=== PATIENT | male | born 1945 | race Caucasian/White ===

== ENCOUNTER → 2016-05-04 | Outpatient (CLI) | payer OTHER ==
[2016-05-04 13:12] LABS: BASO % 0.9 %; BASO ABS # 0.05 K/uL (0-0.2); COMPLETE YES; EOS % 2.8 %; HEMATOCRIT 43.3 % (42-52); IG% 0.2 %; LYMPH % 27.2 %; LYMPH ABS # 1.55 K/uL (1.2-3.4); MEAN CELL VOLUME 88.5 fL (80-100); MEAN CORPUSCULAR HEMOGLOBIN 30.7 pg (25-34); MEAN CORPUSCULAR HGB CONC 34.6 g/dl (32-36); MONO % 9.1 %; NEUT % 59.8 %; PLATELET COUNT 279 K/uL (130-400); RED BLOOD COUNT 4.89 M/uL (4.7-6.1); WHITE BLOOD COUNT 5.69 K/uL (4.8-10.8)
[2016-05-04 13:49] LABS: ALB/GLOB RATIO 1.2 (0.9-2); ALKALINE PHOSPHATASE 82 U/L (45-117); ALT/SGPT 20 U/L (12-78); AST/SGOT 14 U/L (15-37); BLOOD UREA NITROGEN 12 mg/dl (7-18); BUN/CREATININE RATIO 11.3 (10-20); CALCIUM 8.6 mg/dl (8.5-10.1); CARBON DIOXIDE 27 mmol/L (21-32); CHLORIDE 106 mmol/L (98-107); CHOLESTEROL 208 mg/dl (0-200); GLUCOSE 100 mg/dl (70-99); POTASSIUM 3.9 mmol/L (3.5-5.1); SODIUM 141 mmol/L (136-145); TRIGLYCERIDES 219 mg/dl (0-150); VERY LOW DENSITY LIPOPROT CALC 44 mg/dl
[2016-05-04 13:55] LABS: CHOLESTEROL/HDL RATIO 5.1; HDL CHOLESTEROL 41 mg/dl; LDL CHOLESTEROL CALCULATED 123 mg/dl
== END | disposition home or self-care (01) ==
LOC: C.LABMFLN 10:29
PROVIDERS: ATTEND Family Medicine
DX: Z11.59 Encounter for screening for other viral diseases (principal); I10 Essential (primary) hypertension; E78.5 Hyperlipidemia, unspecified

== ENCOUNTER → 2017-05-25 | Outpatient (CLI) | payer OTHER | END | disposition home or self-care (01) | LOC: C.LABMFLN 09:37 | PROVIDERS: ATTEND Family Medicine | DX: E78.5 Hyperlipidemia, unspecified (principal) ==

== ENCOUNTER 2025-02-02 16:03 | Observation (INO) ==
[2025-02-02] MEDS: OPTIRAY 320 125ml IV ONE (16:40)
[2025-02-02 16:45] LABS: Hematocrit (blood only) 46.9 % (42.0-52.0); Hemoglobin 15.6 g/dl (14.0-18.0); Immature Granulocytes # (auto) 0.04 K/uL (0.01-0.20); Immature Granulocytes % (auto) 0.3 %; Mean Corpuscular Hemoglobin 29.9 pg (25.0-34.0); Mean Corpuscular Volume 90.0 fL (80.0-100.0); Platelet Count 277 K/uL (130-400); RDW Standard Deviation 46.0 fL (36.4-46.3); Red Blood Count 5.21 M/uL (4.70-6.10); White Blood Count 12.88 K/ul (4.8-10.8)
[2025-02-02 17:03] LABS: Alanine Aminotransferase 21.0 U/L (7-52); Albumin Globulin Ratio 1.2 (0.9-2); Albumin Level 4.2 gm/dl (3.4-5.0); Alkaline Phosphatase 90.0 U/L (34-104); Anion Gap 7.0 (3-11); Bilirubin,Total 1.0 mg/dl (0.2-1.0); Blood Urea Nitrogen 15.0 mg/dl (6-23); Calcium 9.3 mg/dl (8.6-10.3); Carbon Dioxide 26.0 mmol/L (21-32); Chloride 104.0 mmol/L (98-107); Creatinine Clr Calc Pharmacy 60.3 ml/min; Globulin 3.6 gm/dl (2.5-4.0); Glucose 138.0 mg/dl (70-99(Fasting)); Lipase 10.0 U/L (11-82); Magnesium 2.4 mg/dl (1.7-2.4); Potassium 3.9 mmol/L (3.5-5.1); Sodium 137.0 mmol/L (136-145); Total Protein 7.8 gm/dl (6.0-8.3)
[2025-02-02] MEDS: SODIUM CHLORIDE 0.9% 1,000 ML IV SCH (17:10)
[2025-02-02 17:11] LABS: INR 1.0 (0.9-1.1); Partial Thromboplastin Time 24 Seconds (21-31); Prothrombin Time 10.7 Seconds (9.0-12.0)
--- NOTE | 2025-02-02 17:16 | XRay Report ---
Exam(s): XR CXR 1 VIEW EXAM: XR Chest, 1 View CLINICAL HISTORY: Syncope. TECHNIQUE: Frontal view of the chest. COMPARISON: No relevant prior studies available. FINDINGS: Lungs: Left lower lobe pneumonia. Pleural space: Unremarkable. No pneumothorax. Heart: Unremarkable. No cardiomegaly. Mediastinum: Unremarkable. Normal mediastinal contour. Bones/joints: There are degenerative changes of the spine. No acute fracture. IMPRESSION: Left lower lobe pneumonia. Electronically signed by: Juanita Salamanca MD 02/02/25 17:15 PM
--- NOTE | 2025-02-02 17:19 | CT Scan Report ---
Exam(s): CTA HEAD With Contrast IV Amt: 119 ml optiray 320 EXAM: CT Angiography Head With Intravenous Contrast CLINICAL HISTORY: Dizziness and syncope. TECHNIQUE: Axial computed tomographic angiography images of the head with intravenous contrast. 3D and MIPS images were created and reviewed. CTDI is 60.96 mGy and DLP is 636.87 mGy-cm. Automated exposure control was utilized for the study. A dose lowering technique was utilized adhering to the principles of ALARA. MIP reconstructed images were created and reviewed. CONTRAST: Patient received 119 ml optiray 320 of IV contrast COMPARISON: No relevant prior studies available. FINDINGS: Right internal carotid artery: No acute findings. Intracranial segment is patent with no significant stenosis. No aneurysm. Right anterior cerebral artery: Unremarkable. No occlusion or significant stenosis. No aneurysm. Right middle cerebral artery: Unremarkable. No occlusion or significant stenosis. No aneurysm. Right posterior cerebral artery: Unremarkable. No occlusion or significant stenosis. No aneurysm. Right vertebral artery: Unremarkable as visualized. Left internal carotid artery: No acute findings. Intracranial segment is patent with no significant stenosis. No aneurysm. Left anterior cerebral artery: Unremarkable. No occlusion or significant stenosis. No aneurysm. Left middle cerebral artery: Unremarkable. No occlusion or significant stenosis. No aneurysm. Left posterior cerebral artery: Unremarkable. No occlusion or significant stenosis. No aneurysm. Left vertebral artery: Unremarkable as visualized. Basilar artery: Unremarkable. No occlusion or significant stenosis. No aneurysm. IMPRESSION: No acute finding of the arteries of the head. Electronically signed by: Juanita Salamanca MD 02/02/25 17:17 PM
--- NOTE | 2025-02-02 17:19 | CT Scan Report ---
Exam(s): CTA NECK With Contrast IV Amt: 119 ml optiray 320 EXAM: CT Angiography Neck With Intravenous Contrast CLINICAL HISTORY: Syncope and dizziness. TECHNIQUE: Routine carotid CT angiography protocol was performed with intravenous contrast. NASCET criteria using the distal ICAs for comparison were used for evaluation of stenoses. MIPS images were created and reviewed. CTDI is 37.86 mGy and DLP is 514.76 mGy-cm. Automated exposure control was utilized for the study. A dose lowering technique was utilized adhering to the principles of ALARA. MIP reconstructed images were created and reviewed. CONTRAST: Patient received 119 ml optiray 320 of IV contrast COMPARISON: None. FINDINGS: VASCULATURE: Right common carotid artery: Unremarkable. No occlusion or significant stenosis. No dissection. Right internal carotid artery: There is atherosclerosis of the right carotid bulb without significant stenosis. No dissection. Right external carotid artery: Unremarkable. No occlusion. Right vertebral artery: Unremarkable. No occlusion or significant stenosis. No dissection. Left common carotid artery: Unremarkable. No occlusion or significant stenosis. No dissection. Left internal carotid artery: Unremarkable. Extracranial segment is patent with no occlusion or significant stenosis. No dissection. Left external carotid artery: Unremarkable. No occlusion. Left vertebral artery: Unremarkable. No occlusion or significant stenosis. No dissection. NECK: Bones/joints: There are degenerative changes of the spine. No acute fracture. Soft tissues: Unremarkable. Lung apices: Interseptal thickening could relate to atelectasis and/or pulmonary edema. CAROTID STENOSIS REFERENCE USING NASCET CRITERIA: % ICA stenosis = (1 - narrowest ICA diameter/diameter of distal cervical ICA) x 100. Mild - <50% stenosis. Moderate - 50-69% stenosis. Severe - 70-94% stenosis. Near occlusion - 95-99% stenosis. Occluded - 100% stenosis. IMPRESSION: 1. No acute finding of the arteries of the neck. 2. Interseptal thickening could relate to atelectasis and/or pulmonary edema. Electronically signed by: Juanita Salamanca MD 02/02/25 17:19 PM
--- NOTE | 2025-02-02 17:20 | CT Scan Report ---
Exam(s): CT HEAD Without Contrast EXAM: CT Head Without Intravenous Contrast CLINICAL HISTORY: AMS. TECHNIQUE: Axial computed tomography images of the head/brain without intravenous contrast. CTDI is 36.05 mGy and DLP is 624.41 mGy-cm. Automated exposure control was utilized for the study. A dose lowering technique was utilized adhering to the principles of ALARA. COMPARISON: MRI brain 09/04/2024 FINDINGS: Brain: No intracranial hemorrhage, mass-effect or midline shift. No abnormal extra axial fluid. No evidence of acute infarct. 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 Ventricles: Unremarkable. No ventriculomegaly. Bones/joints: Unremarkable. No acute fracture. Soft tissues: Unremarkable. Sinuses: Unremarkable as visualized. No acute sinusitis. Mastoid air cells: Unremarkable as visualized. No mastoid effusion. IMPRESSION: No acute intracranial finding. Electronically signed by: Juanita Salamanca MD 02/02/25 17:19 PM
--- NOTE | 2025-02-02 18:06 | Emergency Department Note ---
Impression & Plan Community acquired pneumonia, Syncope, Acute dehydration, Acute and chronic respiratory failure with hypoxia ED Provider Note NAME: WILIAM ALVAREZ AGE: 79 SEX: M : 1945 ARRIVES VIA: Ambulance INFORMANT: Patient, EMS ED PROVIDER(S): Ramon Smalls DO CHIEF COMPLAINT: HPI: This is a 79-year-old male with the PMHx of polyneuropathy, degenerative disc disease, anxiety, osteoarthritis, hypertension, hyperlipidemia, GERD and nocturnal hypoxemia presenting to [facility] for further evaluation of syncope. Patient is accompanied by his daughter who provide additional history. they were following up with neurology today when the patient had a syncopal episode. Patient reports worsening shortness of breath and cough over the last few days. Mostly nonproductive. He does have some production of sputum in the mornings. Patient states that he has had issues with syncope. I did visualize the patient syncopal episode on arrival to the emergency department. Patient had loss of consciousness for approximately 30 seconds. He was not confused following the event. Patient states that he may have overdone it outside over the past few days. Family suspects that he could be mildly dehydrated. They deny fever or chills. Denies chest pain or palpitations. They deny abdominal pain, nausea and vomiting. No urinary complaints. No recent changes in bowel movements. Patient denies recent changes in medications or OTC supplements. Patient offers no other complaints, today. ADDITIONAL HISTORY OBTAINED: Per HPI Chronic Medical/Social Conditions Affecting Care: Per HPI PAST MEDICAL HISTORY: See Below PAST SURGICAL HISTORY: See Below FAMILY HISTORY: See Below SOCIAL HISTORY: See Below HOME MEDICATIONS: See Below ALLERGIES: See Below VITALS: See Below PHYSICAL EXAMINATION: GENERAL: Sitting up in bed, alert, well appearing, well nourished, no distress, non-toxic EYE EXAM: normal conjunctiva. PERRL and EOM's grossly intact. OROPHARYNX: no exudate, no erythema, lips, buccal mucosa, and tongue normal and mucous membranes are moist NECK: supple, no nuchal rigidity, no adenopathy, non-tender LUNGS: Decreased BS on the LLL. Normal chest wall mechanics HEART: no murmurs, regular rate, regular rhythm ABDOMEN: abdomen soft, non-tender, no masses, no rebound or guarding. BACK: Back is symmetrical on inspection and there is no deformity, no midline tenderness, no CVA tenderness. SKIN: no rashes and no bruising UPPER EXTREMITIES: upper extremities are grossly normal. LOWER EXTREMITIES: No pitting edema. NEURO EXAM: Normal sensorium, GCS 15, normal speech, no gross weakness of arms, no gross weakness of legs. No drift. Finger to nose intact. Gross sensation intact. MEDICAL DECISION MAKING: Differential diagnoses includes but not limited to ACS, dysrhythmia, stroke, head injury, anemia, AAA, infectious etiology, vasovagal, situational, electrolyte derangements, dehydration, PE, orthostasis In summary, this is a 79 year old male who presented with syncope. Differential as above. Nursing notes and pertinent past medical records reviewed. Vital signs reviewed and the patient is mildly hypoxic from his baseline but otherwise no significant respiratory distress and he is afebrile and hemodynamically stable. Patient was placed on low-flow nasal cannula. He normally wears this at nighttime. Has had to increase oxygen over the last few days secondary to his symptoms. History and presentation revealed syncopal episodes at a been ongoing issue. He has never fully passed out. Sounds like he has normally had just presyncopal episodes. He did have true syncope at the neurology office today as well as arrival to the emergency department. Patient complaining of mild shortness of breath and increased cough. Does have an increased oxygen requirement raising concerns for possible pulmonary etiologies. Physical examination revealed patient is neurovascularly intact. There is no evidence of postictal period to suggest seizures. Patient is warm and well-perfused with hemodynamic stability. Do not think the patient has a AAA or aortic dissection. Do not think the patient's syncope today is cardiac in nature but still a possibility. There is suggestion of possible vasovagal episodes or orthostasis. Acute dehydration is also a consideration. We will plan for laboratory evaluation, chest x-ray and IV hydration. Diagnostics interpreted by me include EKG and cardiac monitoring as listed below: -Cardiac Monitoring: An order was placed for continuous cardiac monitoring. The monitor shows a rate of 80-90s with regular rhythm. -ECG: normal sinus rhythm at a ventricular rate of 93 bpm. Incomplete right bundle branch block present. Left anterior fascicular block present. No significant ST segment changes to suggest STEMI. Intervals otherwise within normal limits. Patient completed laboratory studies and imaging. Results independently interpreted by me are Minimal leukocytosis. No significant anemia. Electrolytes are normal without significant kidney dysfunction. Increased [place] gravity on urinalysis. Suspect mildly dehydrated based on clinical examination and labs. Normal LFTs and lipase. Patient does not have a UTI. Chest x-ray with is consistent with a left lower lobe pneumonia as independently interpreted by me. Patient was started on ceftriaxone and azithromycin in addition to his IV crystalloid resuscitation. CTH independently interpreted by me reveals no evidence of ICH. No significant hydrocephalus. No major skull fractures. CTH does not demonstrate findings to suggest an etiology of the patient's symptoms or presentation, today. Unclear etiology of the patient's symptoms today and we proceeded with CTA head and neck imaging which was negative for acute stroke or significant intracranial abnormalities. Ultimately, the decision was made to admit the patient for community-acquired pneumonia with increased oxygen requirement complicated by syncopal episodes. I discussed the case with the hospitalist service via telephone/TigerText and they are agreeable to admit the patient to their services. Based on the above, including the patient's age, coexisting illnesses, labs, imaging, and exam findings the decision to treat as an inpatient. I discussed the patient with the hospitalist team who recommended admission to their services. They received the medications, treatments, interventions indicated above and their condition remain guarded. I discussed my findings with the patient and their family and they understand and agree with the treatment plan. All patient / family questions were answered to their satisfaction. Consults/Care Managements Discussions: Per MDM ER treatment provided: See above Procedures:none Critical Care: None The chart was completed utilizing [employer] Speech voice recognition software. Grammatical errors, random word insertions, pronoun errors, and incomplete sentences are an occasional consequence of this system due to software limitations, ambient noise, and hardware issues. Any formal questions or concerns about the content, text, or information contained within the body of this dictation should be directly addressed to the physician for clarification. Past Med/Surg History Problem List (Updated 02/04/25 @ 11:41 by Ramon Smalls DO) Acute and chronic respiratory failure with hypoxia (Acute) Acute dehydration (Acute) Syncope (Acute) Community acquired pneumonia (Acute) Polyneuropathy Weakness of both upper extremities Cervical radiculopathy Urinary bladder incontinence Ataxia CAP (community acquired pneumonia) Syncope Nocturnal hypoxemia wears 2 liters at night Food allergy Post-nasal drip Allergy history unknown Injury of left shoulder Left ventricular hypertrophy Exertional angina Disequilibrium Diplopia Head trauma Right facial pain Left lumbar radiculopathy Hyperlipidemia (Chronic) Hearing deficit (Chronic) BL [place] GERD (gastroesophageal reflux disease) (Chronic) Kidney stones (Chronic) Chronic back pain (Chronic) Degenerative disc disease (Chronic) Osteoarthritis (Chronic) History of cataract surgery (Chronic) BILATERAL Anxiety (Chronic) Carpal tunnel syndrome (Chronic) Cervicalgia (Chronic) EKG, abnormal (Chronic) Peripheral neuropathy (Chronic) Rotator cuff tear, right (Chronic) Medical History (Updated 02/04/25 @ 11:41 by Ramon Smalls DO) Essential hypertension Surgical History H/O colonoscopy 11/18/20 repeat 5yrs History of herniorrhaphy bl inguinal History of hand surgery Left History of shoulder surgery Right History of back surgery lumbar Hx laparoscopic cholecystectomy Family History Sister Cancer BOTH SISTERS (NOT SURE OF KIND) Lung cancer Father Hypertension Mother Stroke Denies family history of Ovarian cancer Prostate cancer Myocardial infarction Breast cancer Colorectal cancer Social History (Updated 07/31/24 @ 13:59 by JILLIAN Morris) Smoking Status: Former smoker Tobacco Type: Cigarettes Age Started Using Tobacco: 16; Age Quit Using Tobacco: 19; packs per day: 0.5; Second Hand Exposure: No; Do You Dip or Chew Tobacco: No; Hx Alcohol Use: No Hx Substance Use: No Preferred Language: Samoan Communication Ability: Effective Visual Impairment: Partially Limited Hearing Ability: Use of Hearing Aid Chef Assistant Required: No Beliefs That Will Affect Care: None marital status: Current Living Situation: Spouse current occupational status: retired How many Children do You have: 2 Feels Safe at Home: Yes Childhood Exposure to Second-Hand Smoke: Yes (mother) Diet: regular caffeine: Yes (tea/ occasional coffee) during the past year weight has: remained stable Dental Care, Regularly: No Physical Activity Frequency: Does not Exercise Seatbelt Use: always Sunscreen Use: No Do you think of yourself as: straight/heterosexual Gender Identity: Male Assistive Devices: None Allergies Allergies Allergy/AdvReac Type Severity Reaction Status Date / Time cyclobenzaprine Allergy Anaphylaxis Verified 02/02/25 14:02 [From Flexeril] fexofenadine [From Jane] Allergy Verified 02/02/25 14:02 ibuprofen Allergy Verified 02/02/25 14:02 naproxen [From Aleve] Allergy Verified 02/02/25 14:02 simvastatin [From Vytorin] Allergy Verified 02/02/25 14:02 duloxetine [From Cymbalta] AdvReac Hallucinati Verified 02/02/25 14:02 ng ezetimibe [From Zetia] AdvReac Cramping Verified 02/02/25 14:02 of the Muscles NSAIDS (Non-Steroidal AdvReac Swelling Verified 02/02/25 14:02 Anti-Inflamma of the Eye pregabalin [From Lyrica] AdvReac Swelling Verified 02/02/25 14:02 of the Eye Jocxmrd-BKH-UqB Reductase AdvReac Cramping Verified 02/02/25 14:02 Inhibitor of the [Rfrxobt-Quh-Czl Reductase Muscles Inhibitor] Home Meds Home Medications Medication Instructions Recorded Confirmed acetaminophen 500 mg tablet 1,000 mg PO Q6H PRN Pain 01/11/18 02/04/25 (Tylenol Extra Strength) multivitamin 1 tab PO DAILY 03/13/23 02/04/25 mecobalamin (vitamin B12) 1,000 1,000 mcg PO DAILY 12/02/24 02/04/25 mcg chewable tablet Previous Rx's Medication Instructions Recorded azelastine 137 mcg (0.1 %) nasal 2 spray intranasal DAILY #30 mL 12/02/24 spray amoxicillin 875 mg-potassium 1 tab PO BID #6 tabs 02/03/25 clavulanate 125 mg tablet azithromycin 250 mg tablet 500 mg (2 x 250 mg) PO QAM #3 tabs 02/03/25 midodrine 2.5 mg tablet 2.5 mg PO TID #30 tabs 02/03/25 Results & Data (ED) Vital Signs Vital Signs - 24 hr 02/02/25 16:09 02/02/25 16:45 02/02/25 16:50 Temperature 36.8 C Temperature Source Oral Pulse Rate 93 H Pulse Rate [Apical] 87 Respiratory Rate 20 20 Respiratory Effort / Characteristics Non-Labored Spontaneous Respiratory Depth Normal Blood Pressure 124/79 Blood Pressure [Right Arm] 139/94 Blood Pressure Mean 94 Blood Pressure Mean [Right Arm] 109 Pulse Oximetry 97 96 96 Oxygen Delivery Method Nasal Cannula Nasal Cannula Room Air Oxygen Flow Rate 2 3 3 Sepsis Recent Fever Within 48 Hours No Sepsis New/Unexplained Change in Mental Status N/A Sepsis Action Taken by Nursing No Action Required Laboratory Data 02/03/25 07:00 02/03/25 07:00 Lab Results 02/02/25 02/02/25 Range/Units 16:30 17:04 WBC 12.88 H (4.8-10.8) K/ul RBC 5.21 (4.70-6.10) M/uL Hgb 15.6 (14.0-18.0) g/dl Hct 46.9 (42.0-52.0) % MCV 90.0 (80.0-100.0) fL MCH 29.9 (25.0-34.0) pg MCHC 33.3 (32.0-36.0) g/dL RDW Std Deviation 46.0 (36.4-46.3) fL RDW Coeff of Cathryn 14.0 (11.5-14.5) % Plt Count 277 (130-400) K/uL MPV 9.9 (9.4-12.4) fL Immature Gran % (Auto) 0.3 % Neut % (Auto) 88.7 % Lymph % (Auto) 4.0 % Metcalfe % (Auto) 4.8 % Eos % (Auto) 1.8 % Baso % (Auto) 0.4 % Neut # (Auto) 11.43 H (1.40-6.50) K/uL Lymph # (Auto) 0.51 L (1.20-3.40) K/uL Metcalfe # (Auto) 0.62 H (0.11-0.59) K/uL Eos # (Auto) 0.23 (0.00-0.50) K/uL Baso # (Auto) 0.05 (0.00-0.20) K/uL Immature Gran # (Auto) 0.04 (0.01-0.20) K/uL PT 10.7 (9.0-12.0) Seconds INR 1.0 (0.9-1.1) APTT 24 (21-31) Seconds PTT Ratio 0.9 Sodium 137 (136-145) mmol/L Potassium 3.9 (3.5-5.1) mmol/L Chloride 104 (98-107) mmol/L Carbon Dioxide 26 (21-32) mmol/L Anion Gap 7 (3-11) BUN 15 (6-23) mg/dl Creatinine 1.18 (0.6-1.4) mg/dl Est Cr Clr Drug Dosing 60.3 ml/min eGFR 62.77 BUN/Creatinine Ratio 12.7 (10-20) Glucose 138 H (70-99(Fasting)) mg/dl Lactate 1.6 (0.4-2.0) mmol/L Calcium 9.3 (8.6-10.3) mg/dl Magnesium 2.4 (1.7-2.4) mg/dl Total Bilirubin 1.0 (0.2-1.0) mg/dl AST 27 (13-39) U/L ALT 21 (7-52) U/L Alkaline Phosphatase 90 (34-104) U/L Troponin I High Sens 3.9 (0-20) pg/ml Total Protein 7.8 (6.0-8.3) gm/dl Albumin 4.2 (3.4-5.0) gm/dl Globulin 3.6 (2.5-4.0) gm/dl Albumin/Globulin Ratio 1.2 (0.9-2) Lipase 10 L (11-82) U/L Procalcitonin 0.09 (0-0.5) ng/ml Administered Medications Discontinued Medications Azelastine HCl (Azelastine Hcl 0.1% Nasal 200 Sprays/27,400 Mcg Btl) 2 sprays NA DAILY ANJELICA Stop: 03/05/25 08:59 Last Admin: 02/03/25 09:00 Dose: 2 sprays Documented By: TOMAS Azithromycin (Azithromycin 250 Mg Tab) 500 mg PO QAM ANJELICA Stop: 02/08/25 08:59 Last Admin: 02/03/25 09:01 Dose: 500 mg Documented By: ASA Cyanocobalamin (Cyanocobalamin (B-12) 500 Mcg Tablet) 1,000 mcg PO DAILY ANJELICA Stop: 03/05/25 08:59 Last Admin: 02/03/25 09:01 Dose: 1,000 mcg Documented By: ASA Enoxaparin Sodium (Enoxaparin Inj 40 Mg/0.4 Ml Syr) 40 mg SQ Q24H ANJELICA Stop: 03/04/25 20:59 Last Admin: 02/02/25 22:08 Dose: 40 mg Documented By: TAL Guaifenesin (Guaifenesin 600 Mg Tabcr) 1,200 mg PO Q12 ANJELICA Stop: 03/04/25 20:59 Last Admin: 02/03/25 09:00 Dose: 1,200 mg Documented By: Admin: 02/02/25 22:07 Dose: 1,200 mg Documented By: TAL Sodium Chloride (Nss) 1,000 mls @ 999 mls/hr IV .Q1H1M ANJELICA Stop: 02/02/25 17:30 Last Infusion: 02/02/25 18:20 Dose: Infused Documented By: Admin: 02/02/25 17:10 Dose: 999 mls/hr Documented By: HUMBERTO Ceftriaxone Sodium (Rocephin) 2,000 mg in 50 mls @ 100 mls/hr IV NOW STA Stop: 02/02/25 18:05 Last Infusion: 02/02/25 18:44 Dose: Infused Documented By: Admin: 02/02/25 18:16 Dose: 100 mls/hr Documented By: HUMBERTO Azithromycin (Zithromax) 500 mg in 255 mls @ 127.5 mls/hr IV NOW ONE Stop: 02/02/25 19:35 Last Infusion: 02/02/25 20:55 Dose: Infused Documented By: Admin: 02/02/25 18:39 Dose: 127.5 mls/hr Documented By: HUMBERTO Parenteral Electrolytes (Plasma-Lyte A Ph 7.4) 500 mls @ 999 mls/hr IV .Q31M ONE Stop: 02/02/25 18:06 Last Infusion: 02/02/25 18:45 Dose: Infused Documented By: Admin: 02/02/25 18:19 Dose: 999 mls/hr Documented By: HUMBERTO Ceftriaxone Sodium (Rocephin) 2,000 mg in 50 mls @ 100 mls/hr IV Q24H ANJELICA Stop: 02/08/25 08:59 Last Infusion: 02/03/25 09:45 Dose: Infused Documented By: Admin: 02/03/25 09:01 Dose: 100 mls/hr Documented By: TOMAS Ioversol (Optiray 320 125ml) 119 ml IV ONCE ONE Stop: 02/02/25 16:41 Last Admin: 02/02/25 16:40 Dose: 119 ml Documented By: PLW Multivitamins (Multivitamin Tab) 1 tab PO DAILY ANJELICA Stop: 03/05/25 08:59 Last Admin: 02/03/25 09:01 Dose: 1 tab Documented By: ASA Imaging Data Radiologist's Impression: Head CT 02/02/25 16:24 Exam(s): CT HEAD Without Contrast EXAM: CT Head Without Intravenous Contrast CLINICAL HISTORY: AMS. TECHNIQUE: Axial computed tomography images of the head/brain without intravenous contrast. CTDI is 36.05 mGy and DLP is 624.41 mGy-cm. Automated exposure control was utilized for the study. A dose lowering technique was utilized adhering to the principles of ALARA. COMPARISON: MRI brain 09/04/2024 FINDINGS: Brain: No intracranial hemorrhage, mass-effect or midline shift. No abnormal extra axial fluid. No evidence of acute infarct. 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 Ventricles: Unremarkable. No ventriculomegaly. Bones/joints: Unremarkable. No acute fracture. Soft tissues: Unremarkable. Sinuses: Unremarkable as visualized. No acute sinusitis. Mastoid air cells: Unremarkable as visualized. No mastoid effusion. IMPRESSION: No acute intracranial finding. Electronically signed by: Juanita Salamanca MD 02/02/25 17:19 PM Chest X-Ray 02/02/25 16:25 Exam(s): XR CXR 1 VIEW EXAM: XR Chest, 1 View CLINICAL HISTORY: Syncope. TECHNIQUE: Frontal view of the chest. COMPARISON: No relevant prior studies available. FINDINGS: Lungs: Left lower lobe pneumonia. Pleural space: Unremarkable. No pneumothorax. Heart: Unremarkable. No cardiomegaly. Mediastinum: Unremarkable. Normal mediastinal contour. Bones/joints: There are degenerative changes of the spine. No acute fracture. IMPRESSION: Left lower lobe pneumonia. Electronically signed by: Juanita Salamanca MD 02/02/25 17:15 PM Head CTA 02/02/25 16:26 Exam(s): CTA HEAD With Contrast IV Amt: 119 ml optiray 320 EXAM: CT Angiography Head With Intravenous Contrast CLINICAL HISTORY: Dizziness and syncope. TECHNIQUE: Axial computed tomographic angiography images of the head with intravenous contrast. 3D and MIPS images were created and reviewed. CTDI is 60.96 mGy and DLP is 636.87 mGy-cm. Automated exposure control was utilized for the study. A dose lowering technique was utilized adhering to the principles of ALARA. MIP reconstructed images were created and reviewed. CONTRAST: Patient received 119 ml optiray 320 of IV contrast COMPARISON: No relevant prior studies available. FINDINGS: Right internal carotid artery: No acute findings. Intracranial segment is patent with no significant stenosis. No aneurysm. Right anterior cerebral artery: Unremarkable. No occlusion or significant stenosis. No aneurysm. Right middle cerebral artery: Unremarkable. No occlusion or significant stenosis. No aneurysm. Right posterior cerebral artery: Unremarkable. No occlusion or significant stenosis. No aneurysm. Right vertebral artery: Unremarkable as visualized. Left internal carotid artery: No acute findings. Intracranial segment is patent with no significant stenosis. No aneurysm. Left anterior cerebral artery: Unremarkable. No occlusion or significant stenosis. No aneurysm. Left middle cerebral artery: Unremarkable. No occlusion or significant stenosis. No aneurysm. Left posterior cerebral artery: Unremarkable. No occlusion or significant stenosis. No aneurysm. Left vertebral artery: Unremarkable as visualized. Basilar artery: Unremarkable. No occlusion or significant stenosis. No aneurysm. IMPRESSION: No acute finding of the arteries of the head. Electronically signed by: Juanita Salamanca MD 02/02/25 17:17 PM Neck CTA 02/02/25 16:26 Exam(s): CTA NECK With Contrast IV Amt: 119 ml optiray 320 EXAM: CT Angiography Neck With Intravenous Contrast CLINICAL HISTORY: Syncope and dizziness. TECHNIQUE: Routine carotid CT angiography protocol was performed with intravenous contrast. NASCET criteria using the distal ICAs for comparison were used for evaluation of stenoses. MIPS images were created and reviewed. CTDI is 37.86 mGy and DLP is 514.76 mGy-cm. Automated exposure control was utilized for the study. A dose lowering technique was utilized adhering to the principles of ALARA. MIP reconstructed images were created and reviewed. CONTRAST: Patient received 119 ml optiray 320 of IV contrast COMPARISON: None. FINDINGS: VASCULATURE: Right common carotid artery: Unremarkable. No occlusion or significant stenosis. No dissection. Right internal carotid artery: There is atherosclerosis of the right carotid bulb without significant stenosis. No dissection. Right external carotid artery: Unremarkable. No occlusion. Right vertebral artery: Unremarkable. No occlusion or significant stenosis. No dissection. Left common carotid artery: Unremarkable. No occlusion or significant stenosis. No dissection. Left internal carotid artery: Unremarkable. Extracranial segment is patent with no occlusion or significant stenosis. No dissection. Left external carotid artery: Unremarkable. No occlusion. Left vertebral artery: Unremarkable. No occlusion or significant stenosis. No dissection. NECK: Bones/joints: There are degenerative changes of the spine. No acute fracture. Soft tissues: Unremarkable. Lung apices: Interseptal thickening could relate to atelectasis and/or pulmonary edema. CAROTID STENOSIS REFERENCE USING NASCET CRITERIA: % ICA stenosis = (1 - narrowest ICA diameter/diameter of distal cervical ICA) x 100. Mild - <50% stenosis. Moderate - 50-69% stenosis. Severe - 70-94% stenosis. Near occlusion - 95-99% stenosis. Occluded - 100% stenosis. IMPRESSION: 1. No acute finding of the arteries of the neck. 2. Interseptal thickening could relate to atelectasis and/or pulmonary edema. Electronically signed by: Juanita Salamanca MD 02/02/25 17:19 PM Discharge Plan Visit Data Chief Complaint: Syncope Stated Complaint: SYNCOPE, CHEST PRESSURE ED Provider: Ramon Smalls Discharge Problem: Community acquired pneumonia, Syncope, Acute dehydration, Acute and chronic respiratory failure with hypoxia Patient Disposition: Admitted As Inpatient Condition: Serious Discharge Instructions Interventions: ED Discharge Assessment Last Done: 02/02/25 20:11
[2025-02-02] MEDS: cefTRIAXone SODIUM 2,000 MG/50 ML BAG IV STA (18:16)
[2025-02-02] MEDS: PLASMA-LYTE A 500 ML IV ONE (18:19)
--- NOTE | 2025-02-02 18:31 | History & Physical Report ---
"Date of Service February 02, 2025 Assessment & Plan (1) Syncope: (2) CAP (community acquired pneumonia): Plan Roderick is a pleasant 79-year-old man with past medical history of hypertension, hyperlipidemia, lumbar radiculopathy, nocturnal hypoxemia, diplopia, memory loss, dizziness/lightheadedness. He presented from his outpatient neurology office via EMS after a syncopal episode at his neurology appointment. He had another syncopal episode while in the ED. Workup on admission significant for left lower lobe pneumonia. He is being admitted for treatment of his LLL CAP and further workup of his syncopal episodes. #Syncope 2 syncopal episodes on 02/02, 1 in neurology office outpatient and 1 in ED on presentation. These syncopal episodes may be secondary to hypoxemia? He has had numerous episodes of presyncope and 1 other episode of syncope over the last 2 years. More often in the hot weather when working outside. Question if could be from dysautonomia? - Does not appear to be cardiac etiology. Monitor on telemetry - Stroke workup started in ED has been unremarkable, including head CT, head CTA, neck CTA - Brain MRI in August 2024 at [facility] unremarkable - Echocardiogram in December 2024 with EF 60-65%, grade 1 diastolic dysfunction, normal LV size and function - Orthostatic VS ordered - Lipid panel, A1c ordered with a.m. labs - PT/OT consulted -Check Lyme titer, vitamin D level, a.m. cortisol level, TSH. Recent B12 was normal - Check two-step walk test prior to discharge - Add MOSES hose for compression #Community-acquired pneumonia - with increased shortness of breath, nonproductive cough x 2 days at home - Mild leukocytosis with WBC 12.88, left lower lobe pneumonia identified on CXR, increased O2 requirement from baseline - Procalcitonin and lactate normal - Start ceftriaxone and azithromycin - Incentive Spirometer, Mucinex, Sputum Culture if able to produce - Duonebs PRN - Supplemental O2 as needed to maintain sats >90% - Trend CBC with AM labs #Dizziness/lightheadedness | Diplopia | Blurred vision - ongoing issue - Follows with ophthalmology and neurology outpatient - Stress test in 01/07 was normal - Had cataract surgery in October and November of this year. Reports initial improvement with his vision, but unfortunately it has returned to how it was prior to these surgeries now #Hypertensionpreviously prescribed lisinopril but no longer taking this #Hyperlipidemiacontinue omega-3 fatty acids. Reportedly had side effects to statin medications in the past #Chronic back pain | lumbar radiculopathy history of multiple back surgeries. Continue home Percocet 5325 mg twice daily as needed. Wears back brace regularly #Nocturnal hypoxemiacontinue O2 at bedtime VTE PPx: Lovenox SQ Dispo: Observation on med/tele Reviewed prior records Updated daughter at bedside on admission History of Present Illness Chief Complaint: Syncope Primary Care Provider: Michelle Drummond DO Vaughn is a pleasant 79-year-old man with past medical history of hypertension, hyperlipidemia, lumbar radiculopathy, nocturnal hypoxemia, diplopia, memory loss, dizziness/lightheadedness. He presented from his outpatient neurology office via EMS after a syncopal episode at his neurology appointment. At the time of my exam, the patient was lying in bed in no acute distress with his daughter present. He states he he was at his neurologist due to ongoing polyneuropathy, diplopia, lightheadedness that has been ongoing for about 1 year. At this appointment, he had a syncopal episode where he was unresponsive for approximately 30 seconds and had head/chest/back pain, blurry vision, tingling sensation in his arms, weakness, and dizziness upon waking up. He was transported to the ED via EMS. While in the ED, he had another syncopal episode. ED physician evaluated him following this repeat syncopal episode. He was diaphoretic at that time but had no focal neurological deficits. He does report increased shortness of breath for the past few days. He reports a nonproductive cough worse in the morning that has been ongoing since his supplemental O2 at bedtime was started in August of this year. He typically wears 2 L of oxygen at bedtime at baseline, though he is working on obtaining an additional oxygen concentrator for the daytime as well. He denies any recent medication changes. He states a few months ago he was started on lisinopril, but discontinued this after 3 days due to side effects. He very sparingly uses Percocet as needed for severe back pain. Vitals on admission significant for an increased O2 requirement from baseline in order to maintain oxygen saturationcurrently 96% on 3 L O2; vitals otherwise stable. Labs on admission are significant for mild leukocytosis of 12.88 with neutrophil predominance and slightly elevated glucose at 138. Hgb and platelets WNL. Electrolytes WNL. Renal function WNL. Liver enzymes WNL. Lactate WNL at 1.6. Troponin WNL at 3.9. Procalcitonin WNL at 0.09. CXR on admission reveals left lower lobe pneumonia. Head CT with no acute intracranial finding. Head and neck CTAs with no acute findings. EKG with NSR, incomplete RBBB, left anterior fascicular block, no ischemic changes. We discussed code status, patient wishes to be a full code. Allergies Allergy/AdvReac Type Severity Reaction Status Date / Time cyclobenzaprine Allergy Anaphylaxis Verified 02/02/25 14:02 [From Flexeril] fexofenadine [From Jane] Allergy Verified 02/02/25 14:02 ibuprofen Allergy Verified 02/02/25 14:02 naproxen [From Aleve] Allergy Verified 02/02/25 14:02 simvastatin [From Vytorin] Allergy Verified 02/02/25 14:02 duloxetine [From Cymbalta] AdvReac Hallucinati Verified 02/02/25 14:02 ng ezetimibe [From Zetia] AdvReac Cramping Verified 02/02/25 14:02 of the Muscles NSAIDS (Non-Steroidal AdvReac Swelling Verified 02/02/25 14:02 Anti-Inflamma of the Eye pregabalin [From Lyrica] AdvReac Swelling Verified 02/02/25 14:02 of the Eye Fqvvpys-NKS-BqF Reductase AdvReac Cramping Verified 02/02/25 14:02 Inhibitor of the [Rmfolza-Pff-Jtj Reductase Muscles Inhibitor] Home Medications Medication Instructions Recorded Confirmed Type acetaminophen 500 mg tablet 1,000 mg PO Q6H PRN Pain 01/11/18 02/02/25 History (Tylenol Extra Strength) multivitamin 1 tab PO DAILY 03/13/23 02/02/25 History azelastine 137 mcg (0.1 %) nasal 2 spray intranasal DAILY #30 mL 12/02/24 02/02/25 Rx spray mecobalamin (vitamin B12) 1,000 1,000 mcg PO DAILY 12/02/24 02/02/25 History mcg chewable tablet Past Med/Surg History Problem List (Updated 02/02/25 @ 20:03 by Nat Hugo PA-C) Polyneuropathy Weakness of both upper extremities Cervical radiculopathy Urinary bladder incontinence Ataxia CAP (community acquired pneumonia) Syncope Nocturnal hypoxemia wears 2 liters at night Food allergy Post-nasal drip Allergy history unknown Injury of left shoulder Left ventricular hypertrophy Exertional angina Disequilibrium Diplopia Head trauma Right facial pain Left lumbar radiculopathy Hyperlipidemia (Chronic) Hearing deficit (Chronic) BL THOMPSON GERD (gastroesophageal reflux disease) (Chronic) Kidney stones (Chronic) Chronic back pain (Chronic) Degenerative disc disease (Chronic) Osteoarthritis (Chronic) History of cataract surgery (Chronic) BILATERAL Anxiety (Chronic) Carpal tunnel syndrome (Chronic) Cervicalgia (Chronic) EKG, abnormal (Chronic) Peripheral neuropathy (Chronic) Rotator cuff tear, right (Chronic) Medical History (Updated 02/02/25 @ 20:03 by Nat Hugo PA-C) Essential hypertension Surgical History H/O colonoscopy 11/18/20 repeat 5yrs History of herniorrhaphy bl inguinal History of hand surgery Left History of shoulder surgery Right History of back surgery lumbar Hx laparoscopic cholecystectomy Family History Sister Cancer BOTH SISTERS (NOT SURE OF KIND) Lung cancer Father Hypertension Mother Stroke Denies family history of Ovarian cancer Prostate cancer Myocardial infarction Breast cancer Colorectal cancer Social History (Updated 07/31/24 @ 13:59 by JILLIAN Morris) Smoking Status: Former smoker Tobacco Type: Cigarettes Age Started Using Tobacco: 16; Age Quit Using Tobacco: 19; packs per day: 0.5; Second Hand Exposure: No; Do You Dip or Chew Tobacco: No; Hx Alcohol Use: Yes Alcohol type: hard liquor Alcohol type Comment: whiskey/mohan Alcohol Intake Frequency: Monthly or Less Hx Substance Use: No Preferred Language: Austrian Communication Ability: Effective Visual Impairment: Partially Limited Hearing Ability: Use of Hearing Aid Product Communications Manager Required: No Beliefs That Will Affect Care: None marital status: Current Living Situation: Spouse current occupational status: retired How many Children do You have: 2 Feels Safe at Home: Yes Childhood Exposure to Second-Hand Smoke: Yes (mother) Diet: regular caffeine: Yes (tea/ occasional coffee) during the past year weight has: remained stable Dental Care, Regularly: No Physical Activity Frequency: Does not Exercise Seatbelt Use: always Sunscreen Use: No Do you think of yourself as: straight/heterosexual Gender Identity: Male Assistive Devices: Cane, Denture - Upper, Denture - Lower and Glasses Review of Systems Review of Systems: All systems reviewed & are unremarkable except as noted in HPI & below Eyes: + diplopia, + decreased night vision, + seeing flashes and + spots in vision Respiratory: + cough and + chest congestion Neurologic: + syncope Physical Exam Physical Exam: General: No acute distress, nondiaphoretic, well-developed, well-nourished. Skin: The skin was without rashes, erythema, edema, or bruising. Cardiac: Regular rate and rhythm without murmurs gallops or rubs. Pulm: Clear to auscultation bilaterally without wheezes, rales or rhonchi. No retractions or accessory muscle use. Abdominal: Positive bowel sounds x 4. Soft, nontender, without masses or organomegaly. No guarding or rebound tenderness. Neuro: A&O x3. No focal neurological deficits. Results & Data Results & Data Vital Signs (Past 12 Hours) Vital Signs Temp Pulse Pulse Resp BP BP Pulse Ox 02/02/25 16:50 96 02/02/25 16:45 87 20 139/94 96 02/02/25 16:09 98.2 F 93 H 20 124/79 97 O2 Del Method O2 Flow Rate 02/02/25 16:50 Room Air 3 02/02/25 16:45 Nasal Cannula 3 02/02/25 16:09 Nasal Cannula 2 Laboratory Results Reviewed CBC with differential, coagulation studies, CMP, chemistries Diagnostic Findings Reviewed CXR, head CT, head CTA, neck CTA, EKG Supervising Physician Co-Signing Physician Notes PA Supervision Note: I personally saw and examined the patient. I verified all hernandez points and agree with ADAIR Singh with the following exceptions and/or additions: S-patient here with 2 episodes of passing out-the first of the neurology office and the second in the ED waiting area. He reports a 2-year history of frequent lightheadedness and 1 other episode of syncope in August 2024 with subsequent hospitalization and has had negative neuro and cardiac workup thus far. He reports the symptoms are more frequent when he is out in warm weather. He reports he is on his feet doing something usually outside almost all day every day. He reports he is on his feet doing something usually outside almost all day every day. He is not taking any medications except for a B12 supplement and multivitamin. With some mild hypoxemia and left lower lobe pneumonia seen on chest x-ray, mild leukocytosis but no fevers or chills. History and ROS otherwise reviewed as above O- Vitals reviewed Gen: AAOx3, NAD HEENT: Anicteric sclerae, EOMI CV: RRR no mgr nl S1S2 Pulm: CTAB no wcr Abd: +BS soft NT ND no masses or hernias Ext: No edema, 2+ DP pulses Skin: No rashes, warm/dry Neuro: Full strength throughout CBC, BMP, troponin, ECG, CXR, CTA head and neck, CT head noncontrast reviewed A/[id number]-px[age]-old male with no significant past medical history except lumbar spinal stenosis and neuropathy, here with recurrent syncope and presyncope. He has already had a significant neurologic and cardiac workup which has been negative thus far. Suspect some sort of dysautonomia or POTS perhaps? Received IV fluids in the ED. Seen by neurology and likely needs an EMG/nerve conduction study for significant neuropathy. - Check Lyme panel, a.m. cortisol, vitamin D, TSH in the a.m. - Add MOSES hose - Check orthostatic vital signs - Consider adding midodrine or Florinef PG Care Time/CCT Total # of Minutes Spent Total Time Spent with Patient: Total time spent is greater than 50% in coordination of care (as documented) at patient's floor/unit and/or counseling patient: Coding Level of Care Code 09657 INT INP/OBS CARE 3/75MIN Diagnoses Syncope R55 CAP (community acquired pneumonia) J18.9"
[2025-02-02] MEDS: AZITHROMYCIN 500 MG/255 ML BAG IV ONE (18:39)
[2025-02-02 19:57] LABS: Appearance Urine Clear (Clear); Bacteria Urine Automated None Seen (None Seen); Cast Urine Automated 0-2 /lpf (0-2); Epithelial Cell Urine Auto 0-2 /hpf (0-2); Glucose Urine UA Negative (Negative); RBC Urine Automated 0-2 /hpf (0-2); WBC Urine Automated 0-5 /hpf (0-5)
[2025-02-02] MEDS ORDERED: ALBUT/IPRATROP 3MG/0.5MG NEB 3 ML VIAL NEB PRN (20:39)
[2025-02-02] MEDS ORDERED: ACETAMINOPHEN 325 MG TAB PO PRN (20:39)
[2025-02-02] MEDS ORDERED: ONDANSETRON INJ 2 MG/ML 2 ML VIAL IV PRN (20:39)
[2025-02-02] MEDS ORDERED: ALUMINUM/MAGNESIUM SUSP 30 ML UDC PO PRN (20:39)
[2025-02-02] MEDS ORDERED: POLYETHYLENE (MIRALAX) 17 GM PACK PO PRN (20:39)
[2025-02-02] MEDS: guaiFENesin 600 MG TABCR PO SCH (22:07)
[2025-02-02] MEDS: ENOXAPARIN INJ 40 MG/0.4 ML SYR SQ SCH (22:08)
[2025-02-03 07:16] LABS: Hematocrit (blood only) 38.0 % (42.0-52.0); Hemoglobin 12.9 g/dl (14.0-18.0); Mean Corpuscular Hemoglobin 30.7 pg (25.0-34.0); Mean Corpuscular Volume 90.5 fL (80.0-100.0); Platelet Count 204 K/uL (130-400); RDW Standard Deviation 46.9 fL (36.4-46.3); Red Blood Count 4.20 M/uL (4.70-6.10); White Blood Count 7.03 K/ul (4.8-10.8)
[2025-02-03 07:32] LABS: Anion Gap 6.0 (3-11); Blood Urea Nitrogen 12.0 mg/dl (6-23); Calcium 8.0 mg/dl (8.6-10.3); Carbon Dioxide 26.0 mmol/L (21-32); Chloride 106.0 mmol/L (98-107); Cholesterol 129.0 mg/dl (0-200); Creatinine Clr Calc Pharmacy 61.4 ml/min; Glucose 105.0 mg/dl (70-99(Fasting)); HDL Cholesterol 30.0 mg/dl; Potassium 3.4 mmol/L (3.5-5.1); Sodium 138.0 mmol/L (136-145); Triglycerides 111.0 mg/dl (0-150)
[2025-02-03 07:41] LABS: Hemoglobin A1C 5.5 % (4.5-5.6)
[2025-02-03 07:47] LABS: Thyroid Stimulating Hormone 0.977 uIu/ml (0.300-4.500)
[2025-02-03] MEDS: AZELASTINE HCL 0.1% NASAL 200 SPRAYS/27,400 MCG BTL SCH (09:00)
[2025-02-03] MEDS: MULTIVITAMIN TAB PO SCH (09:01)
[2025-02-03] MEDS: AZITHROMYCIN 250 MG TAB PO SCH (09:01)
[2025-02-03] MEDS: cefTRIAXone SODIUM 2,000 MG/50 ML BAG IV SCH (09:01)
[2025-02-03] MEDS: CYANOCOBALAMIN (B-12) 500 MCG TABLET PO SCH (09:01)
[2025-02-03 09:49] LABS: Cdiff Toxin B Gene (2yr or >) Negative Cdiff Gene (Neg)
--- NOTE | 2025-02-03 15:16 | Discharge Summary ---
"Discharge Summary Date of Service February 03, 2025 Principal Dx & Hospital Course #1 = Principal Diagnosis (1) Syncope: (2) CAP (community acquired pneumonia): Sabina Vaughn is a pleasant 79-year-old man with past medical history of hypertension, hyperlipidemia, lumbar radiculopathy, nocturnal hypoxemia, diplopia, memory loss, dizziness/lightheadedness. He presented from his outpatient neurology office via EMS after a syncopal episode at his neurology appointment. He had another syncopal episode while in the ED. Workup on admission significant for left lower lobe pneumonia. He was admitted for treatment of his LLL CAP and further workup of his syncopal episodes. #Syncope 2 syncopal episodes on 02/02, 1 in neurology office outpatient and 1 in ED on presentation. He has had numerous episodes of presyncope and 1 other episode of syncope over the last 2 years. More often in the hot weather when working outside. Question if could be from dysautonomia? - Does not appear to be cardiac etiology. Monitored on telemetry, no events - Stroke workup started in ED unremarkable, including head CT, head CTA, neck CTA - Brain MRI in August 2024 at [facility] unremarkable - Echocardiogram in December 2024 with EF 60-65%, grade 1 diastolic dysfunction, normal LV size and function - Lipid panel WNL, TSH WNL, AM cortisol WNL, vitamin D WNL, Lyme screen negative, A1c 5.5%. Recent B12 was normal - 2 step completed prior to discharge with no additional O2 needs - laser beam machine operator will coordinate 30 day heart monitor #Orthostatic hypotension - Orthostatic VS positive but patient reportedly asymptomatic - Start midodrine 2.5 mg TID - Recommend referral for tilt table test - for which he would need to hold the midodrine - Discussed compression stockings with him to wear. Could consider abdominal binder if refractory to medication/supportive measures #Community-acquired pneumonia - with increased shortness of breath, nonproductive cough x 2 days at home - Mild leukocytosis on admission with WBC 12.88 (now resolved), left lower lobe pneumonia identified on CXR, increased O2 requirement from baseline - Procalcitonin and lactate normal - Treated with ceftriaxone and azithromycin while admitted. Discharged on Augmentin twice daily and azithromycin once daily to complete 5-day course - Stable on room air -Recommend repeat chest x-ray in 4 to 6 weeks to ensure resolution of pneumonia #Dizziness/lightheadedness | Diplopia | Blurred vision - ongoing issue - Follows with ophthalmology and neurology outpatient - Stress test in 01/07 was normal - Had cataract surgery in October and November of this year. Reports initial improvement with his vision, but unfortunately it has returned to how it was prior to these surgeries now #Hypertensionpreviously prescribed lisinopril but no longer taking this #Hyperlipidemiacontinue omega-3 fatty acids. Reportedly had side effects to statin medications in the past #Chronic back pain | Lumbar radiculopathy history of multiple back surgeries. Continue home Percocet 5325 mg twice daily as needed. Wears back brace regularly #Nocturnal hypoxemiacontinue O2 at bedtime VTE PPx: Lovenox SQ Dispo: Discharged home 02/03 Notes For Next Care Provider I started Mr. Scales on midodrine 2.5 mg 3 times daily and recommend close follow-up with PCP. Also recommend a referral for a tilt table test (he for which he would need to hold the midodrine). Our branch maker will coordinate a 30-day heart monitor for him. I wonder if his presyncope symptom onset of been ongoing for 1-2 years related to dysautonomia? Could be further worked up in the outpatient setting. Medication Changes From Visit Started midodrine 2.5 mg 3 times daily Augmentin twice daily and azithromycin once daily x 3 additional days Admission HPI Per Admitting Provider Roderick is a pleasant 79-year-old man with past medical history of hypertension, hyperlipidemia, lumbar radiculopathy, nocturnal hypoxemia, diplopia, memory loss, dizziness/lightheadedness. He presented from his outpatient neurology office via EMS after a syncopal episode at his neurology appointment. At the time of my exam, the patient was lying in bed in no acute distress with his daughter present. He states he he was at his neurologist due to ongoing polyneuropathy, diplopia, lightheadedness that has been ongoing for about 1 year. At this appointment, he had a syncopal episode where he was unresponsive for approximately 30 seconds and had head/chest/back pain, blurry vision, tingling sensation in his arms, weakness, and dizziness upon waking up. He was transported to the ED via EMS. While in the ED, he had another syncopal episode. ED physician evaluated him following this repeat syncopal episode. He was diaphoretic at that time but had no focal neurological deficits. He does report increased shortness of breath for the past few days. He reports a nonproductive cough worse in the morning that has been ongoing since his supplemental O2 at bedtime was started in August of this year. He typically wears 2 L of oxygen at bedtime at baseline, though he is working on obtaining an additional oxygen concentrator for the daytime as well. He denies any recent medication changes. He states a few months ago he was started on lisinopril, but discontinued this after 3 days due to side effects. He very sparingly uses Percocet as needed for severe back pain. Vitals on admission significant for an increased O2 requirement from baseline in order to maintain oxygen saturationcurrently 96% on 3 L O2; vitals otherwise stable. Labs on admission are significant for mild leukocytosis of 12.88 with neutrophil predominance and slightly elevated glucose at 138. Hgb and platelets WNL. Electrolytes WNL. Renal function WNL. Liver enzymes WNL. Lactate WNL at 1.6. Troponin WNL at 3.9. Procalcitonin WNL at 0.09. CXR on admission reveals left lower lobe pneumonia. Head CT with no acute intracranial finding. Head and neck CTAs with no acute findings. EKG with NSR, incomplete RBBB, left anterior fascicular block, no ischemic changes. We discussed code status, patient wishes to be a full code. Discharge Exam General: No acute distress, nondiaphoretic, well-developed, well-nourished. Skin: Warm, dry. No rashes or peripheral edema noted. Cardiac: Regular rate and rhythm without murmurs gallops or rubs. Pulm: Clear to auscultation bilaterally without wheezes, rales or rhonchi. Normal respiratory effort. 95% on room air. Abdominal: Soft, nontender, nondistended. Bowel sounds present. Neuro: A&O x3. No focal neurological deficits. Discharge Plan Discharge Items Patient Disposition: Home - Home Health Services Reason For Visit: SYNCOPE, PNEUMONIA Discharge Diagnosis: Syncope, community-acquired pneumonia Activity: Resume your previous activity Non-emergency contact: Primary Care Provider and Neurologist Call non-emergency contact if: you have any medication questions and your symptoms worsen Follow-up/Referrals: Short,Michelle Shemar-Cheryl, DO [Primary Care Provider] - 02/09/25 10:00 am (Follow-up within 1 week) Diet: Regular Addtl Attending Provider Instructions: Mook, You were admitted to the hospital after 2 syncopal episodes yesterday, 02/02. You were also found to have community-acquired pneumonia and were started on antibiotics to treat this. Additionally, your orthostatic vital signs indicated orthostatic hypotension this is a drop in your blood pressure when going from lying to sitting to standing. This orthostatic hypotension may have played a role in near syncopal episodes. The syncopal episodes may also have been due to dysautonomia, which can be further worked up outpatient. The respiratory team evaluated you to see if you need daytime oxygen at rest or with activity, and fortunately you do not require any additional oxygen during the daytime. Upon discharge from the hospital: * Start midodrine 2.5 mg three times daily. This is to prevent orthostatic hypotension. The most common side effects of midodrine are lying and sitting hypertension, itchiness, urinary retention, and increased urinary frequency/urgency. * Take Augmentin (oral antibiotic) twice daily and azithromycin (oral antibiotic) once daily x 3 additional days at home. Start this tomorrow, 02/04 as you already received your dose of antibiotics for today. Side effects of oral antibiotics include GI upset. I recommend taking your antibiotics with food to prevent nausea/vomiting/diarrhea. You could also take a probiotic (available [id number]) or eat a cup of yogurt daily while on antibiotics. * You can take Mucinex as needed for congestion. This is available [id number]. * I have made a referral for you to get a 30 day heart monitor to see if you have any underlying arrhythmias that might be causing your syncope/ongoing symptoms. * Continue your other home medications as prescribed. * Follow-up with your PCP within 1 week. Please return to the hospital if you experience any of the following: Further episodes of syncope, chest pain, difficulty breathing, confusion, strokelike symptoms, or any other acute concerns. It was a pleasure taking care of you while you were in the hospital! Pending Studies at Discharge: No Stand-Alone Forms: My RMI, Smoking Cessation Medications and DC Order Prescriptions: New azithromycin 250 mg Tablet 500 mg PO QAM Qty: 3 0RF midodrine 2.5 mg tablet 2.5 mg PO TID Qty: 30 0RF Rx Instructions: do not give last dose of day after 6PM or within 4 hrs of bedtime amoxicillin-pot clavulanate 875-125 mg tablet 1 tab PO BID Qty: 6 0RF Continued multivitamin Tablet 1 tab PO DAILY mecobalamin (vitamin B12) 1,000 mcg tablet,chewable 1,000 mcg PO DAILY azelastine 137 mcg (0.1 %) spray,non-aerosol 2 spray intranasal DAILY Qty: 30 11RF acetaminophen [Tylenol Extra Strength] 500 mg Tablet 1,000 mg PO Q6H PRN (Reason: Pain) Admission Data Admit Date/Time: 02/02/25 19:41 Attending Provider: Gabi Okeefe Admit Provider: Gabi Okeefe Primary Care Provider: Michelle Drummond Other Providers: Gabi Okeefe Other Interventions: Discharge Summary Assessment (RN) Last Done: 02/03/25 15:50 Hospital Stay Data Consultations 02/02/25 18:06 ED Decision to Admit Stat Diagnostic Imagining Performed Head CT 02/02/25 16:24 Exam(s): CT HEAD Without Contrast EXAM: CT Head Without Intravenous Contrast CLINICAL HISTORY: AMS. TECHNIQUE: Axial computed tomography images of the head/brain without intravenous contrast. CTDI is 36.05 mGy and DLP is 624.41 mGy-cm. Automated exposure control was utilized for the study. A dose lowering technique was utilized adhering to the principles of ALARA. COMPARISON: MRI brain 09/04/2024 FINDINGS: Brain: No intracranial hemorrhage, mass-effect or midline shift. No abnormal extra axial fluid. No evidence of acute infarct. 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 Ventricles: Unremarkable. No ventriculomegaly. Bones/joints: Unremarkable. No acute fracture. Soft tissues: Unremarkable. Sinuses: Unremarkable as visualized. No acute sinusitis. Mastoid air cells: Unremarkable as visualized. No mastoid effusion. IMPRESSION: No acute intracranial finding. Electronically signed by: Juanita Salamanca MD 02/02/25 17:19 PM Chest X-Ray 02/02/25 16:25 Exam(s): XR CXR 1 VIEW EXAM: XR Chest, 1 View CLINICAL HISTORY: Syncope. TECHNIQUE: Frontal view of the chest. COMPARISON: No relevant prior studies available. FINDINGS: Lungs: Left lower lobe pneumonia. Pleural space: Unremarkable. No pneumothorax. Heart: Unremarkable. No cardiomegaly. Mediastinum: Unremarkable. Normal mediastinal contour. Bones/joints: There are degenerative changes of the spine. No acute fracture. IMPRESSION: Left lower lobe pneumonia. Electronically signed by: Juanita Salamanca MD 02/02/25 17:15 PM Head CTA 02/02/25 16:26 Exam(s): CTA HEAD With Contrast IV Amt: 119 ml optiray 320 EXAM: CT Angiography Head With Intravenous Contrast CLINICAL HISTORY: Dizziness and syncope. TECHNIQUE: Axial computed tomographic angiography images of the head with intravenous contrast. 3D and MIPS images were created and reviewed. CTDI is 60.96 mGy and DLP is 636.87 mGy-cm. Automated exposure control was utilized for the study. A dose lowering technique was utilized adhering to the principles of ALARA. MIP reconstructed images were created and reviewed. CONTRAST: Patient received 119 ml optiray 320 of IV contrast COMPARISON: No relevant prior studies available. FINDINGS: Right internal carotid artery: No acute findings. Intracranial segment is patent with no significant stenosis. No aneurysm. Right anterior cerebral artery: Unremarkable. No occlusion or significant stenosis. No aneurysm. Right middle cerebral artery: Unremarkable. No occlusion or significant stenosis. No aneurysm. Right posterior cerebral artery: Unremarkable. No occlusion or significant stenosis. No aneurysm. Right vertebral artery: Unremarkable as visualized. Left internal carotid artery: No acute findings. Intracranial segment is patent with no significant stenosis. No aneurysm. Left anterior cerebral artery: Unremarkable. No occlusion or significant stenosis. No aneurysm. Left middle cerebral artery: Unremarkable. No occlusion or significant stenosis. No aneurysm. Left posterior cerebral artery: Unremarkable. No occlusion or significant stenosis. No aneurysm. Left vertebral artery: Unremarkable as visualized. Basilar artery: Unremarkable. No occlusion or significant stenosis. No aneurysm. IMPRESSION: No acute finding of the arteries of the head. Electronically signed by: Juanita Salamanca MD 02/02/25 17:17 PM Neck CTA 02/02/25 16:26 Exam(s): CTA NECK With Contrast IV Amt: 119 ml optiray 320 EXAM: CT Angiography Neck With Intravenous Contrast CLINICAL HISTORY: Syncope and dizziness. TECHNIQUE: Routine carotid CT angiography protocol was performed with intravenous contrast. NASCET criteria using the distal ICAs for comparison were used for evaluation of stenoses. MIPS images were created and reviewed. CTDI is 37.86 mGy and DLP is 514.76 mGy-cm. Automated exposure control was utilized for the study. A dose lowering technique was utilized adhering to the principles of ALARA. MIP reconstructed images were created and reviewed. CONTRAST: Patient received 119 ml optiray 320 of IV contrast COMPARISON: None. FINDINGS: VASCULATURE: Right common carotid artery: Unremarkable. No occlusion or significant stenosis. No dissection. Right internal carotid artery: There is atherosclerosis of the right carotid bulb without significant stenosis. No dissection. Right external carotid artery: Unremarkable. No occlusion. Right vertebral artery: Unremarkable. No occlusion or significant stenosis. No dissection. Left common carotid artery: Unremarkable. No occlusion or significant stenosis. No dissection. Left internal carotid artery: Unremarkable. Extracranial segment is patent with no occlusion or significant stenosis. No dissection. Left external carotid artery: Unremarkable. No occlusion. Left vertebral artery: Unremarkable. No occlusion or significant stenosis. No dissection. NECK: Bones/joints: There are degenerative changes of the spine. No acute fracture. Soft tissues: Unremarkable. Lung apices: Interseptal thickening could relate to atelectasis and/or pulmonary edema. CAROTID STENOSIS REFERENCE USING NASCET CRITERIA: % ICA stenosis = (1 - narrowest ICA diameter/diameter of distal cervical ICA) x 100. Mild - <50% stenosis. Moderate - 50-69% stenosis. Severe - 70-94% stenosis. Near occlusion - 95-99% stenosis. Occluded - 100% stenosis. IMPRESSION: 1. No acute finding of the arteries of the neck. 2. Interseptal thickening could relate to atelectasis and/or pulmonary edema. Electronically signed by: Juanita Salamanca MD 02/02/25 17:19 PM Pending Results Patient Have Any Pending Studies at Discharge: No Discharge Instructions Given to Patient (Per Discharging Provider) Mook, You were admitted to the hospital after 2 syncopal episodes yesterday, 02/02. You were also found to have community-acquired pneumonia and were started on antibiotics to treat this. Additionally, your orthostatic vital signs indicated orthostatic hypotension this is a drop in your blood pressure when going from lying to sitting to standing. This orthostatic hypotension may have played a role in near syncopal episodes. The syncopal episodes may also have been due to dysautonomia, which can be further worked up outpatient. The respiratory team evaluated you to see if you need daytime oxygen at rest or with activity, and fortunately you do not require any additional oxygen during the daytime. Upon discharge from the hospital: * Start midodrine 2.5 mg three times daily. This is to prevent orthostatic hypotension. The most common side effects of midodrine are lying and sitting hypertension, itchiness, urinary retention, and increased urinary frequency/urgency. * Take Augmentin (oral antibiotic) twice daily and azithromycin (oral antibiotic) once daily x 3 additional days at home. Start this tomorrow, 02/04 as you already received your dose of antibiotics for today. Side effects of oral antibiotics include GI upset. I recommend taking your antibiotics with food to prevent nausea/vomiting/diarrhea. You could also take a probiotic (available [id number]) or eat a cup of yogurt daily while on antibiotics. * You can take Mucinex as needed for congestion. This is available [id number]. * I have made a referral for you to get a 30 day heart monitor to see if you have any underlying arrhythmias that might be causing your syncope/ongoing symptoms. * Continue your other home medications as prescribed. * Follow-up with your PCP within 1 week. Please return to the hospital if you experience any of the following: Further episodes of syncope, chest pain, difficulty breathing, confusion, strokelike symptoms, or any other acute concerns. It was a pleasure taking care of you while you were in the hospital! Supervising Physician Co-Signing Physician Notes ADAIR Supervision Note: I did not personally see or examine the patient today, but I verified all hernandez points of ADAIR Singh's assessment and plan with the following exceptions/additions: None Total Time Total Time Spent Total Time Spent (In Minutes): Greater than 30 minutes spent completing this discharge process including direct patient care, medication reconciliation, documentation, review of labs and images, and coordination of care. Coding Level of Care Code 26792 INP/OBS DISCH >30 MIN Diagnoses Syncope R55 CAP (community acquired pneumonia) J18.9"
[2025-02-03 15:27] VITALS: BP 128/75; RESP 18; TEMP 98.4; O2SAT 91
[2025-02-03 15:50] VITALS: PULSE 73
--- NOTE | 2025-02-04 06:09 | Electrocardiogram Report ---
Test Reason : Blood Pressure : */* mmHG Vent. Rate : 93 BPM Atrial Rate : 93 BPM P-R Int : 150 ms QRS Dur : 100 ms QT Int : 372 ms P-R-T Axes : 42 -77 28 degrees QTcB Int : 462 ms Normal sinus rhythm Incomplete right bundle branch block Left anterior fascicular block Cannot rule out Inferior infarct (masked by fascicular block?) , age undetermined Abnormal ECG No previous ECGs available Confirmed by Jason Heller ([id number]) on 02/04/2025 6:08:52 AM Referred By: REFERRED SELF Confirmed By: Jason Heller
== END 2025-02-03 18:04 | disposition home health service (06) ==
LOC: 2W 16:03 → ED 16:03 → 2W 20:11